=== PATIENT | female | born 1945 | race Caucasian/White ===

== ENCOUNTER 2022-01-06 10:50 | Emergency (ER) | payer OTHER ==
[~2022-01-06 10:50] MED LIST: BACLOFEN 10MG T10 MG PO; TRAMADOL HCL50 MG PO; XANAX0.25 MG PO
[2022-01-06 11:35] LABS: BILIRUBIN 1+ mg/dL (NEGATIVE); BLOOD 1+ Ery/uL (NEGATIVE); CLARITY HAZY (CLEAR); COLOR YELLOW (YELLOW); GLUCOSE (U) NORMAL (NORMAL); LEUKOCYTES 1+ Leu/uL (NEGATIVE); NITRITE POSITIVE (NEGATIVE); PROTEIN 1+ mg/dL (NEGATIVE); SPECIFIC GRAVITY 1.015 (1.001-1.030); UROBILINOGEN 0.2 mg/dL (0.2-1.0)
[2022-01-06 11:45] LABS: BACTERIA 3+; URINARY WBC 20-50
[2022-01-06 12:16] LABS: BASOPHIL 0.6 % (0-2); EOSINOPHIL 3.1 % (0-7); HGB 13.8 g/dl (12.5-16.0); LYMPHOCYTE 19.9 % (15-48); MCH 29.4 pg (25.0-31.0); MCHC 33.7 g/dL (32.0-36.0); MCV 87.2 fL (78.0-100.0); MONOCYTE 8.6 % (0-12); MPV 10.3 fL (6.0-9.5); NEUTROPHIL 67.2 % (41-80); NRBC 0; PLT 261 K/uL (150-400); RDW 13.7 % (11.5-14.0)
[2022-01-06 12:26] LABS: BUN/CREAT RATIO (CALC) 23.5 RATIO; CREATININE 1.15 mg/dL (0.51-0.95); POTASSIUM 2.8 mmol/L (3.5-5.1)
[2022-01-06] MEDS ORDERED: ONDANSETRON ODT4 MG PO (13:52)
[2022-01-06] MEDS ORDERED: CEFDINIR300 MG PO (13:52)
== END 2022-01-06 15:58 | disposition home or self-care (01) ==
LOC: FER 10:50
PROVIDERS: Emergency Medicine
DX: N28.9 Disorder of kidney and ureter, unspecified (principal); E87.6 Hypokalemia; K59.00 Constipation, unspecified; I10 Essential (primary) hypertension; Z88.0 Allergy status to penicillin; Z88.8 Allergy status to other drugs, medicaments and biological substances; Z88.6 Allergy status to analgesic agent; Z79.899 Other long term (current) drug therapy
CPT/HCPCS: 36415; 80048; 81001; 85025; 87076; 87088; 87186; J0696; J2405; J7040

== ENCOUNTER 2022-03-13 14:40 | Emergency (ER) | payer OTHER ==
[~2022-03-13 14:40] MED LIST changes: +CEFDINIR300 MG PO; +ONDANSETRON ODT4 MG PO
[2022-03-13] MEDS ORDERED: ATIVAN0.5 MG PO (17:59)
== END 2022-03-13 18:30 | disposition home or self-care (01) ==
LOC: FER 14:40
DX: F19.239 Other psychoactive substance dependence with withdrawal, unspecified (principal)
CPT/HCPCS: 99283